=== PATIENT | female | born 1960 | race Caucasian/White ===

== ENCOUNTER 2017-02-12 07:53 | Emergency (ER) | payer BC ==
[2017-02-12 08:11] VITALS: BP 144/69
--- NOTE | 2017-02-12 09:15 | UC ---
Respiratory Complaint HPI - HPI Summary HPI Summary: 3 WEEKS OF COUGH, CONGESTION, VALIENTE, RHINITIS, SINUS PRESSURE, HOARSENESS AND INTERMITTENT, SUBJECTIVE FEVER. THOUGHT SHE WAS IMPROVING AFTER THE FIRST WEEK BUT THEN SX WORSENED AND HAVE NOT IMPROVED. - History of Current Complaint Chief Complaint: UCRespiratory Stated Complaint: RESP Time Seen by Provider: 02/12/17 09:01 Hx Obtained From: Patient Onset/Duration: Gradual Onset, Lasting Weeks, Still Present Timing: Constant Severity Initially: Moderate Severity Currently: Moderate Pain Intensity: 0 Pain Scale Used: 0-10 Numeric Character: Cough: Nonproductive Aggravating Factors: Nothing Alleviating Factors: Nothing Associated Signs And Symptoms: Positive: Fever, Wheezing, URI, Nasal Congestion , Hoarseness, Sinus Discomfort - Allergies/Home Medications Allergies/Adverse Reactions: Allergies Allergy/AdvReac Type Severity Reaction Status Date / Time Sertraline [From Zoloft] Allergy Severe Swelling Verified 02/12/17 08:11 Of Face,Lips,& Throat Eggs or Egg-derived Products Allergy Mild Rash Verified 02/12/17 08:11 Home Medications: Home Medications Citalopram TAB* [Celexa TAB*] 1 tab PO DAILY 02/12/17 [History Confirmed ] Ibuprofen [Childrens Advil] 20 ml PO Q6HR PRN 02/12/17 [History Confirmed ] PMH/Surg Hx/FS Hx/Imm Hx Cancer History: Breast Cancer - Surgical History Surgical History: Yes Surgery Procedure, Year, and Place: left mastectomy 2010 - Family History Known Family History: Negative: Hypertension - Social History Alcohol Use: None Substance Use Type: None Smoking Status (MU): Light Every Day Tobacco Smoker Type: Cigarettes Amount Used/How Often: 8-10 cig/day Length of Time of Smoking/Using Tobacco: 30+ years Have You Smoked in the Last Year: Yes - Immunization History Most Recent Influenza Vaccination: NOT UTD Review of Systems Constitutional: Fever, Fatigue ENT: Nasal Discharge Respiratory: Cough Cardiovascular: Negative Gastrointestinal: Negative Neurological: Headache All Other Systems Reviewed And Are Negative: Yes Physical Exam Triage Information Reviewed: Yes Appearance: Well-Appearing, No Pain Distress, Well-Nourished Vital Signs: Initial Vital Signs Temp 99.0 F 02/12/17 08:06 Pulse 82 02/12/17 08:06 Resp 20 02/12/17 08:06 BP 144/69 02/12/17 08:06 Pulse Ox 100 02/12/17 08:06 Vital Signs Reviewed: Yes Eyes: Positive: Conjunctiva Clear ENT: Positive: Hearing grossly normal, Pharynx normal, TMs normal Neck: Positive: Supple, Nontender, No Lymphadenopathy Respiratory: Positive: No respiratory distress, No accessory muscle use, Crackles - RIGHT LOWER LOBE COARSE RALES - CLEARED AFTER COUGHING Cardiovascular Exam: Normal Abdomen Description: Positive: Soft Musculoskeletal: Positive: No Edema Neurological: Positive: Alert Psychological: Positive: Age Appropriate Behavior Skin: Negative: rashes UC Diagnostic Evaluation - Laboratory O2 Sat by Pulse Oximetry: 100 Respiratory Course/Dx - Differential Dx/Diagnosis Provider Diagnoses: ACUTE SINUSITIS/BRONCHITIS Discharge - Discharge Plan Condition: Stable Disposition: HOME Prescriptions: Amoxicillin PO (*) [Amoxicillin 500 MG CAP*] 1,000 mg PO Q12H #40 cap predniSONE TAB* [Deltasone TAB*] 40 mg PO DAILY #10 tab Patient Education Materials: Sinusitis (ED), Acute Bronchitis (ED) Forms: *Work Release Referrals: Gerald Barber MD [Primary Care Provider] - If Needed Additional Instructions: YOUR SYMPTOMS MAY BE VIRALLY MEDIATED BUT GIVEN THE LENGTH OF TIME YOU HAVE BEEN ILL WE WILL COVER YOU WITH ANTIBIOTICS. IF YOU START THE MEDICINE BE SURE TO TAKE IT FOR THE FULL COURSE. REST, HYDRATE, OTC MEDS NEEDED. WILL ALSO TREAT WITH PREDNISONE TO HELP WITH AIRWAY INFLAMMATION. SEEK FOLLOW-UP WITH YOUR PCP IF YOU ARE NOT IMPROVING OVER THE NEXT 1-2 WEEKS.
== END 2017-02-12 09:25 | disposition home or self-care (01) ==
LOC: UCEAST 07:53
DX: J01.90 Acute sinusitis, unspecified (principal); J20.9 Acute bronchitis, unspecified; Z85.3 Personal history of malignant neoplasm of breast; F17.210 Nicotine dependence, cigarettes, uncomplicated; Z88.8 Allergy status to other drugs, medicaments and biological substances
CPT/HCPCS: 99212; G0463

== ENCOUNTER 2017-10-31 15:43 | Inpatient (IN) | payer BC ==
[2017-10-31] MEDS ORDERED: Ondansetron INJ* 2 MG/ML VIAL IV PRN (16:14)
[2017-10-31] MEDS: KCL 20 MEQ/100 ML IVPREMIX* 20 MEQ/100 ML BAG IV SCH ×2 (18:06→20:53)
[2017-10-31] MEDS: NS 0.9% 1000 ML* 1,000 ML IV SCH (18:06)
[2017-10-31] MEDS: Morphine INJ* 2 MG/ML 1 ML SYRINGE (TWO MG - NEW SYRINGE VERSION) IV PRN ×2 (18:07→23:26)
[2017-10-31] MEDS: Nystatin SUSPENSION* 100000 UNITS/ML 5 ML UDC PO SCH ×2 (18:09→20:52)
[2017-10-31] MEDS: Nicotine PATCH 21 MG/24 HR* PATCH TRANSDERM SCH (18:09)
[2017-10-31] MEDS: Nicotine Patch Removal NOTE FOLLOW UP SCH (20:56)
[2017-10-31] MEDS: Fluconazole 100 MG IVPREMIX(*) 100 MG/50 ML BAG IVPB SCH (23:27)
[2017-11-01] MEDS: NS 0.9% 1000 ML* 1,000 ML IV SCH (05:02)
[2017-11-01] MEDS: Nicotine PATCH 21 MG/24 HR* PATCH TRANSDERM SCH (09:02)
[2017-11-01] MEDS: Nystatin SUSPENSION* 100000 UNITS/ML 5 ML UDC PO SCH ×4 (09:02→20:49)
[2017-11-01] MEDS: Morphine INJ* 2 MG/ML 1 ML SYRINGE (TWO MG - NEW SYRINGE VERSION) IV PRN ×4 (10:13→21:58)
--- NOTE | 2017-11-01 10:22 | PN ---
Progress Note - Progress Note Date of Service: 11/01/17 SOAP: Subjective: [Reports that she is hungry and has intermittent upper abdominal pain. No n/v. No recent BM. Pending feeding tube for this am.] Objective: [ Enoxaparin Sodium (Lovenox(*)) 40 mg SUBCUT Q24H [facility] Sodium Chloride (Ns 0.9% 1000 Ml*) 1,000 mls @ 100 mls/hr IV PER RATE [facility] Last Admin: 11/01/17 05:02 Dose: 100 mls/hr Fluconazole/Sodium Chloride (Diflucan 100 Mg Ivpremix(*)) 100 mg in 50 mls @ 100 mls/hr IVPB Q24H [facility] Last Admin: 10/31/17 23:27 Dose: 100 mls/hr Morphine Sulfate (Morphine Inj ((Syringe))*) 2 mg IV Q2H PRN PRN Reason: PAIN - MILD Last Admin: 10/31/17 23:26 Dose: 2 mg Nicotine (Nicotine Patch 21 Mg/24 Hr*) 1 patch TRANSDERM DAILY [facility] Last Admin: 11/01/17 09:02 Dose: 1 patch Nystatin (Nystatin Suspension*) 500,000 units PO QID [facility] Stop: 11/07/17 16:19 Last Admin: 11/01/17 09:02 Dose: 500,000 units Ondansetron HCl (Zofran Inj*) 4 mg IV Q4H PRN PRN Reason: NAUSEA/VOMITING Pharmacy Profile Note (Nicotine Patch Removal Note*) 1 note FOLLOW UP 2100 [facility] Last Admin: 10/31/17 20:56 Dose: 1 note Vital Signs: Temp Pulse Resp BP Pulse Ox 98.7 F 79 16 118/65 93 11/01/17 03:06 11/01/17 03:06 11/01/17 03:06 11/01/17 03:06 11/01/17 03:06 Exam: Gen: Thin, pleasant 56 yo female in NAD HEENT: thrush CV: RRR, 3/6 murmur Resp: lungs CTA, no w/c/r Abd: soft, nonTTP, hypoactive BS Ext: no edema Skin: no rash] Assessment: [56 yo female with remote h/o BCA now with new diagnosis of esophageal CA, unable to tolerate anything by mouth due to esophageal obstruction. Plans for surgical G tube placement for nutrition. Plan: [1. Esophageal CA - pending surgical feeding tube placement for nutrition - no treatment started as of yet - pending second pathology opinion 2. Severe protein calorie malnutrition - prealbumin 5 - 20% body weight loss 3. h/o BCA Dispo: inpatient for hydration and feeding tube placement]
[2017-11-01 12:09] LABS: ABS Basophils 0.2 10^3/ul (0-0.2); ABS Eosinophils 0.6 10^3/ul (0-0.6); ABS Lymphocytes 1.4 10^3/ul (1.0-4.8); ABS Monocytes 0.8 10^3/ul (0-0.8); ABS Neutrophils 12.5 10^3/ul (1.5-7.7); ABS Nucleated RBC 0 10^3/ul; Eosinophil % 4.2 % (0-6); Hematocrit 29 % (35-47); Hemoglobin 9.4 g/dl (12.0-16.0); Lymphocyte % 9.1 % (25-47); Mean Corpuscular HGB Conc 33 g/dl (31-36); Mean Corpuscular Hemoglobin 27 pg (27-31); Mean Corpuscular Volume 82 fL (80-97); Mean Platelet Volume 6.7 um3 (7.4-10.4); Nucleated Red Blood Cells % 0; Platelet Count 463 10^3/ul (150-450); Red Blood Count 3.51 10^6/ul (4.00-5.40); Red Cell Distribution Width 14 % (10.5-15); White Blood Count 15.5 10^3/ul (3.5-10.8)
[2017-11-01] MEDS ORDERED: ceFAZolin 2 GM PREMIX (*) 2 GM/50 ML BAG IVPB ONE (12:26)
[2017-11-01 12:31] LABS: EGFR Non-African American 97.1 (>60)
[2017-11-01] MEDS ORDERED: Magnesium Sulfate 1 GM IV* 1 GM/100 ML BAG IV ONE (13:11)
[2017-11-01] MEDS ORDERED: Dextrose 50% Syringe 50 ML* 25 GM/50 ML SYRINGE ONE (13:18)
[2017-11-01] MEDS ORDERED: Thiamine IV* 100 MG/ML 2 ML VIAL IV ONE (13:26)
[2017-11-01] MEDS ORDERED: DiMENhydriNATE IV* 50 MG/ML VIAL IV PUSH PRN (13:28)
[2017-11-01] MEDS ORDERED: HYDROmorphone INJ* 0.5 MG/0.5 ML SYRINGE IV PRN (13:28)
[2017-11-01] MEDS ORDERED: Naloxone* 0.4 MG/ML 1 ML VIAL IV PRN (13:28)
[2017-11-01] MEDS ORDERED: Midazolam* 1 MG/ML 2 ML VIAL (2 MG) ONE (14:01)
[2017-11-01] MEDS ORDERED: fentaNYL* 50 MCG/ML 2 ML VIAL (100 MCG VIAL) ONE ×2 (14:16→14:51)
[2017-11-01] MEDS ORDERED: Propofol* 10 MG/ML 20 ML BTL IV PUSH ONE (14:51)
[2017-11-01] MEDS ORDERED: Lidocaine 2% PF * 5 ML VIAL ONE (14:51)
[2017-11-01] MEDS ORDERED: Ondansetron INJ* 2 MG/ML VIAL ONE (14:51)
[2017-11-01] MEDS ORDERED: Dexamethasone IV* 4 MG/ML 1 ML (4 MG) ONE (14:51)
[2017-11-01] MEDS ORDERED: Levalbuterol 0.63MG/3ML NEB* UNIT OF USE INH ONE ×2 (15:32→15:38)
[2017-11-01] MEDS ORDERED: Dextrose 50% Syringe 50 ML* 25 GM/50 ML SYRINGE IV PUSH PRN (15:33)
--- NOTE | 2017-11-01 16:03 | RAD ---
Indication: Gastric tube study. Dehydration. Comparison: October 30, 2017 CT. Technique: Supine view of the abdomen obtained following injection of Gastrografin through the percutaneous gastric tube. REPORT AND IMPRESSION: #. Tip of the percutaneous gastric tube is at the level of the gastric antrum. #. Contrast flows retrograde to the fundus of the stomach and distal to the proximal third segment of the duodenum. #. No enteric leak or gross mucosal irregularity evident. #. Negative for dilatation of the duodenum to suggest distal obstruction.
[2017-11-01] MEDS: KCL 10 MEQ/50 ML IVPREMIX* 10 MEQ/50 ML BAG IV SCH (17:00)
[2017-11-01] MEDS: Fluconazole 100 MG IVPREMIX(*) 100 MG/50 ML BAG IVPB SCH (18:48)
[2017-11-01] MEDS: Nicotine Patch Removal NOTE FOLLOW UP SCH (20:49)
--- NOTE | 2017-11-01 21:11 | CONS ---
SURGICAL CONSULTATION: DATE OF CONSULT: 11/01/17 REQUESTING PHYSICIAN: Ema Monroy MD REASON FOR CONSULT: Esophageal obstruction and need for enteral access. HISTORY OF PRESENT ILLNESS: Soco Mascorro is a 57-year-old female with a history of breast cancer and recently diagnosed malignant esophageal tumor. She had progressive dysphagia, which lead to an endoscopy revealing an obstructing mass in the esophagus. The patient has been unable to tolerate even liquids or her own secretions and presented to the Oncology Office with severe dehydration. She was admitted to [facility] and noted to have some electrolyte derangement. Due to inability to perform PEG tube, the patient has been scheduled for surgical gastrostomy. PAST MEDICAL HISTORY: Breast cancer and esophageal cancer, anxiety, tobacco use. PAST SURGICAL HISTORY: Left mastectomy. MEDICATIONS: 1. Buspirone. 2. Cymbalta. ALLERGIES: SERTRALINE, EGGS, and SANDWICH. FAMILY HISTORY: Notable for breast cancer in her sister. SOCIAL HISTORY: She is single, mother of 2 adopted children, age of 9 and 12. She smokes half a pack a day. Denies alcohol use or drug use. REVIEW OF SYSTEMS: Constitutional: No fever, chills, but 20-pound weight loss over several months, 6-pound weight loss over the past week. GI: As above. Endocrine: As above. No diabetes or thyroid disease. : No symptoms. Respiratory: No chest pain or shortness of breath. Cardiac: No history of angina or palpitations. PHYSICAL EXAM: She is cachetic-appearing 56-year-old female who is lying in the hospital bed, in no acute distress. She has a height of 5 feet 1 inch, weight of 85 pounds. Head is normocephalic and atraumatic. Sclerae are anicteric. Her abdomen is without scars, nondistended, soft, and nontender. No palpable masses or hernias. Extremities are warm and well perfused. IMPRESSION: A 56-year-old female with obstructing esophageal cancer, in need of enteric access for feeding. PLAN/RECOMMENDATIONS: We will place surgical gastrostomy tube as she is not a candidate for endoscopic approach. The nature of the procedure, indications, risks, benefits, and alternatives were discussed with the patient and 2 of her sisters who accompanied her. The risks, benefits, and alternatives were explained. The risks were explained including, not limiting to, bleeding, infection, pain, scarring, blood clot, pneumonia, tube complications including dislodgement and the risk of the anesthesia. The patient had an opportunity to ask questions and she stated her understanding and she agrees to proceed. [id number]/[facility] #: [id number] MTDD
[2017-11-02] MEDS: Morphine INJ* 2 MG/ML 1 ML SYRINGE (TWO MG - NEW SYRINGE VERSION) IV PRN ×5 (03:06→21:55)
[2017-11-02] MEDS: NS 0.9% 1000 ML* 1,000 ML IV SCH (05:54)
[2017-11-02 07:11] LABS: EGFR Non-African American 113.5 (>60)
[2017-11-02] MEDS: Nicotine PATCH 21 MG/24 HR* PATCH TRANSDERM SCH (07:46)
[2017-11-02] MEDS: Nystatin SUSPENSION* 100000 UNITS/ML 5 ML UDC PO SCH ×4 (07:46→21:55)
--- NOTE | 2017-11-02 07:49 | PN ---
Progress Note - Progress Note Date of Service: 11/02/17 Note: POD#1 s/p G-tube Afeb Flores TF, No nausea Has loose stools Mild pain Abd benign--site clean, non-distended, min tender Impr: Appropriate recovery s/p G-tube Advance feeds slowly as tolerated Disch per medicine
[2017-11-02] MEDS ORDERED: NS 0.9% w/ 40 Meq KCL 1000 ML* 1,000 ML IV SCH (11:00)
[2017-11-02] MEDS: Enoxaparin(*) 40 MG/0.4 ML SYR SUBCUT SCH (17:20)
[2017-11-02] MEDS: Fluconazole 100 MG IVPREMIX(*) 100 MG/50 ML BAG IVPB SCH (18:22)
[2017-11-02] MEDS: Nicotine Patch Removal NOTE FOLLOW UP SCH (21:55)
[2017-11-03 06:39] LABS: EGFR Non-African American 102.7 (>60)
[2017-11-03] MEDS: Nystatin SUSPENSION* 100000 UNITS/ML 5 ML UDC PO SCH ×4 (08:10→20:10)
[2017-11-03] MEDS: Nicotine PATCH 21 MG/24 HR* PATCH TRANSDERM SCH (08:10)
[2017-11-03] MEDS: Morphine INJ* 2 MG/ML 1 ML SYRINGE (TWO MG - NEW SYRINGE VERSION) IV PRN (09:01)
[2017-11-03] MEDS ORDERED: Morphine ORAL CONCENTRATE* 5 MG/0.25 ML ORAL.SYRIN SL PRN (10:53)
[2017-11-03] MEDS ORDERED: fentaNYL PATCH 12 MCG/HR TRANSDERM SCH (11:00)
[2017-11-03] MEDS: Enoxaparin(*) 40 MG/0.4 ML SYR SUBCUT SCH (17:20)
[2017-11-03] MEDS: Fluconazole 100 MG IVPREMIX(*) 100 MG/50 ML BAG IVPB SCH (18:25)
[2017-11-03] MEDS: fentaNYL Patch Check Q Shift 1 NOTE SCH (18:28)
[2017-11-03] MEDS: Nicotine Patch Removal NOTE FOLLOW UP SCH (20:12)
[2017-11-04] MEDS: fentaNYL Patch Check Q Shift 1 NOTE SCH (07:09)
[2017-11-04 07:48] VITALS: BP 122/74
[2017-11-04] MEDS: Nystatin SUSPENSION* 100000 UNITS/ML 5 ML UDC PO SCH (08:17)
[2017-11-04] MEDS: Nicotine PATCH 21 MG/24 HR* PATCH TRANSDERM SCH (08:18)
--- NOTE | 2017-11-05 04:07 | OP ---
CC: Ema Monroy MD; Shawn Frankel MD * DATE OF OPERATION: 11/01/17 - ROOM #411 DATE OF : 56 SURGEON: Marvin Yao MD PERSONNEL AND PAYROLL TECHNICIAN: Andreea Jacobson NP ANESTHESIOLOGIST: Dr. Butcher. ANESTHESIA: Local MAC. PRE-OP DIAGNOSIS: Destructing esophageal cancer. POST-OP DIAGNOSIS: Destructing esophageal cancer. OPERATIVE PROCEDURE: Open placement of gastrostomy tube. ESTIMATED BLOOD LOSS: Minimal. IV FLUIDS: Crystalloid. SPECIMENS: None. DRAINS: 20-Ukrainian gastrostomy tube. COMPLICATIONS: None. COUNTS: The instrument, needle, and sponge counts were correct. DESCRIPTION OF PROCEDURE: The patient was brought to the operating room and placed on the table supine. Sequential compression devices were placed on both lower extremities. Intravenous sedation was administered as were intravenous antibiotics. She was prepped and draped in the usual sterile fashion. Time- out was performed. Local anesthetic was infiltrated into the upper midline of the abdomen. Incision was created through subcutaneous tissues with cautery and fascia was divided, elevated and peritoneum was entered with Metzenbaum scissors. The peritoneum and fascia was then extended to the length of the incision which was about 7 cm. The gastric body was identified, grasped along the greater curvature with Alejandra clamps and elevated into the wound. A 3-0 silk purse string was placed in the anterior stomach near the greater curvature. A 20- Ukrainian gastrostomy tube was placed through a separate stab wound incision in the left upper quadrant of the abdomen. Gastrotomy is created with cautery and mucosa was elevated and entered. The tube was inserted into the gastric lumen and then the purse string was secured. The stomach was then sutured to the anterior abdominal wall at 3 positions with 3-0 silk. The balloon of the gastric tube was inflated and drawn up towards the abdominal wall as the sutures were tied down. The gastric tube was aspirated and there was some scant bile noted. The midline wound was closed with 0 Vicryl in running fashion. Midline skin was closed with 4-0 Monocryl. The gastric tube was secured with 3-0 Prolene to the skin and then 0-silk placed around the flange in order to further secure the tube. The patient tolerated the procedure well. She was awakened and transferred to recovery in stable condition. [id number]/[facility] #: [id number] [facility]ITAL[facility]
== END 2017-11-04 09:30 | disposition home or self-care (01) | DRG 222 ==
LOC: MED 17:11
PROVIDERS: ADMIT Internal Medicine Hematology & Oncology; ATTEND Internal Medicine Hematology & Oncology
PROC: 0DH60UZ Insertion of Feeding Device into Stomach, Open Approach (ICD-10-PCS; principal; 2017-11-01 13:30)
DX: K22.2 Esophageal obstruction (principal); E43 Unspecified severe protein-calorie malnutrition; C15.9 Malignant neoplasm of esophagus, unspecified; Z68.1 Body mass index [BMI] 19.9 or less, adult; R13.10 Dysphagia, unspecified; F41.9 Anxiety disorder, unspecified; E78.5 Hyperlipidemia, unspecified; F17.210 Nicotine dependence, cigarettes, uncomplicated; E86.0 Dehydration; E87.6 Hypokalemia; Z91.012 Allergy to eggs; Z88.8 Allergy status to other drugs, medicaments and biological substances; Z91.048 Other nonmedicinal substance allergy status; Z79.899 Other long term (current) drug therapy; Z80.3 Family history of malignant neoplasm of breast; Z85.3 Personal history of malignant neoplasm of breast
CPT/HCPCS: 36415; 71260; 74018; 74160; 80048; 80053; 83735; 84134; 85025; 85060; 96360; 99211; 99223; 99232; A9270-GY; G0463; J0690; J1100; J1450; J1650; J2250; J2270; J2405; J2704; J3010; J3411; J3475; J3480; Q9967

== ENCOUNTER 2018-01-05 21:51 | Inpatient (IN) | payer BC ==
[2018-01-05] MEDS ORDERED: NS 0.9% 1000 ML* 1,000 ML IV ONE (22:10)
[2018-01-05] MEDS ORDERED: Pantoprazole IV* 40 MG IV ONE (22:10)
--- NOTE | 2018-01-05 22:35 | ED ---
Complex/Multi-Sys Presentation - HPI Summary HPI Summary: The pt is a 57 y.o female [facility] with chief complaints of AMS and black tarry stool. The pt's history is dictated by the pt's family member ( sister) as well as the pt herself. The pt's family member states that the pt has cancer in areas ranging from the esophagus to the stomach which later traveled to parts of the liver and bone as well (metastasis). She was diagnosed in November. Other PSHx includes Mastectomy, and PICC line placement. The pt has also reportedly received stents in the esophagus. No cardiac issues are reported. Pt reports pale figure, weakness and fatigue. She has been receiving antibiotics with the assistance of her sisters. PT has had issues producing a bowel movement in 3 to 4 days and later received Magnesium citrate (2.5 ounces) earlier today with water to facilitate bowel movement. As per pt report and her sister's report, the pt's stool is described as black and tarry. No iron was taken. The pt has been seen in [facility] [place], [place] (where she received the PICC line placement). - History Of Current Complaint Chief Complaint: EDAltMentalStatus Time Seen by Provider: 01/05/18 22:05 Hx Obtained From: Patient, Family/Pharmacovigilance Scientist - Sister Onset/Duration: Gradual Onset Timing: Constant Aggravating Factor(s): Nothing Alleviating Factor(s): Magnesium Citrate Associated Signs And Symptoms: Positive: Other - Black Tarry Stool, and AMS - Allergies/Home Medications Allergies/Adverse Reactions: Allergies Allergy/AdvReac Type Severity Reaction Status Date / Time egg Allergy Hives Verified 12/25/17 15:17 Egg Derived Allergy Hives Verified 12/25/17 15:17 egg yolk Allergy Hives Verified 12/25/17 15:17 sertraline [From Zoloft] Allergy Swelling Verified 12/25/17 15:17 Of Face,Lips,& Throat PMH/Surg Hx/FS Hx/Imm Hx Endocrine/Hematology History: Reports: Hx Anemia Denies: Hx Diabetes Cardiovascular History: Denies: Hx Hypertension GI History: Reports: Hx Gastrointestinal Bleed, Other GI Disorders - Stage 4 esophageal CA, PEG in place History: Denies: Hx Dialysis, Hx Renal Disease Musculoskeletal History: Reports: Hx Back Problems Denies: Hx Osteoporosis Sensory History: Reports: Hx Contacts or Glasses Denies: Hx Hearing Aid Opthamlomology History: Reports: Hx Contacts or Glasses Psychiatric History: Reports: Hx Anxiety - Cancer History Cancer Type, Location and Year: left breast CA 2010 Esophogeal Hx Chemotherapy: Yes Hx Radiation Therapy: No - Surgical History Surgery Procedure, Year, and Place: left mastectomy 2010 Hx Anesthesia Reactions: No Infectious Disease History: No Infectious Disease History: Denies: Hx Clostridium Difficile, Hx Hepatitis, Hx Human Immunodeficiency Virus (HIV), Hx of Known/Suspected MRSA, Hx Shingles, Hx Tuberculosis, Hx Known/ Suspected VRE, Hx Known/Suspected VRSA, History Other Infectious Disease, Traveled Outside the [place] in Last 30 Days - Family History Known Family History: Negative: Hypertension Family History: Reviewed and Noncontributory - Social History Alcohol Use: None Substance Use Type: Reports: None Smoking Status (MU): Heavy Every Day Tobacco Smoker Type: Cigarettes Amount Used/How Often: pack per day Length of Time of Smoking/Using Tobacco: 40 years Have You Smoked in the Last Year: Yes Review of Systems Positive: Fatigue, Other - Pale Eyes: Negative ENT: Negative Cardiovascular: Negative Respiratory: Negative Gastrointestinal: Other - Black Tarry Stool Genitourinary: Negative Musculoskeletal: Negative Skin: Negative Positive: Weakness Psychological: Other - Altered Mental State All Other Systems Reviewed And Are Negative: Yes Physical Exam - Summary Physical Exam Summary: VITAL SIGNS: Reviewed. GENERAL: Patient is pale (FEMALE) who is lying comfortable in the stretcher. Patient is not in any acute respiratory distress. HEAD AND FACE: No signs of trauma. No ecchymosis, hematomas or skull depressions. No sinus tenderness. EYES: PERRLA, EOMI x 2, No injected conjunctiva, no nystagmus. EARS: Hearing grossly intact. Ear canals and tympanic membranes are within normal limits. MOUTH: Oropharynx within normal limits. NECK: Supple, trachea is midline, no adenopathy, no JVD, no carotid bruit, no c- spine tenderness, neck with full ROM. CHEST: Symmetric, no tenderness at palpation LUNGS: Clear to auscultation bilaterally. No wheezing or crackles. CVS: Tachycardic ABDOMEN: Soft, non-tender. No signs of distention. No rebound no guarding, and no masses palpated. G Tube with black liquid in her tube. EXTREMITIES: Bilateral lower Extremity edema, Two port PICC line in right upper extremity NEURO: Alert and oriented x 3. No acute neurological deficits. Speech is normal and follows commands. SKIN: Dry and warm Rectal exam:Showed black stool; sent for occult blood Triage Information Reviewed: Yes Vital Signs On Initial Exam: Initial Vitals Temp Pulse Resp BP Pulse Ox 97.5 F 120 28 75/56 0 01/05/18 22:08 01/05/18 22:08 01/05/18 22:08 01/05/18 22:08 01/05/18 22:08 Vital Signs Reviewed: Yes Diagnostics - Vital Signs Vital Signs Temp Pulse Resp BP Pulse Ox 01/05/18 22:08 97.5 F 120 28 75/56 0 - Laboratory Result Diagrams: 01/05/18 22:25 01/05/18 22:25 Lab Statement: Any lab studies that have been ordered have been reviewed, and results considered in the medical decision making process. - Radiology Chest X-ray Radiology Interpretation Completed By: ED Physician - The Chest X-ray revealed right plural effusion, which improved from previous chest x-ray from 12/22/17. - EKG 2306 Cardiac Rate: Tachycardia - 114 bpm Summary of EKG Findings: The EKG reveals Q waves in the septal leads at 2306 Complex Multi-Symp Course/Dx Course Of Treatment: The pt is a 57 y.o female with a chief complaint of black tarry stool. The pt is a cancer pt who is currently in a AMS. The pt is in comfort care and is currently on morphine, We discussed with patient and patient 's family if the pt would want to be transferred to another Facility ([place]) and the pt wishes to stay. The Rectal exam did show black stool and sent for occult blood. The hospitalist was paged at [phone]. Dr. Knapp is the hospitalist. The pt dx will be upper GI bleed and Esophageal cancer. Critical Care Time: 50 minutes. Pt was admitted at 0004. - Diagnoses Provider Diagnoses: Upper GI bleed, Esophageal cancer - Physician Notifications Discussed Care Of Patient With: Michelle Knapp - Discussed pt care Time Discussed With Above Provider: 00:00 Instructed by Provider To: Admit As Observation - Critical Care Time Critical Care Time: 30-74 min - 50 minutes Discharge - Sign-Out/Discharge Documenting (check all that apply): Patient Departure - Admitted to the [facility] - Discharge Plan Condition: Stable Disposition: ADMITTED TO [facility] Referrals: Gerald Barber MD [Primary Care Provider] - - Attestation Statements Document Initiated by Scribe: Yes Documenting Scribe: Chris Carpenter Provider For Whom Scribe is Documenting (Include Credential): Dr. Main Mack Scribe Attestation: Chris Osuna, scribed for Dr. Main Mack on 01/06/18 at 0024.
[2018-01-05 22:42] LABS: Hematocrit 9 % (35-47); Hemoglobin 2.7 g/dl (12.0-16.0); Mean Corpuscular HGB Conc 30 g/dl (31-36); Mean Corpuscular Hemoglobin 27 pg (27-31); Mean Corpuscular Volume 92 fL (80-97); Mean Platelet Volume 7.5 fL (7.4-10.4); Platelet Count 164 10^3/ul (150-450); Red Blood Count 0.97 10^6/ul (4.00-5.40); Red Cell Distribution Width 19 % (10.5-15); White Blood Count 30.1 10^3/ul (3.5-10.8)
[2018-01-05 22:48] LABS: INR 2.49 (0.77-1.02)
[2018-01-05] MEDS ORDERED: Pantoprazole* 80 mg IN NS 80 MG/250 ML BAG IVPB SCH (23:00)
[2018-01-05 23:04] LABS: ABS Basophils 0.2 10^3/ul (0-0.2); ABS Eosinophils 0.2 10^3/ul (0-0.6); ABS Lymphocytes 2.3 10^3/ul (1.0-4.8); ABS Monocytes 0.9 10^3/ul (0-0.8); ABS Neutrophils 26.6 10^3/ul (1.5-7.7); ABS Nucleated RBC 1.3 10^3/ul; Eosinophil % 0.6 % (0-6); Lymphocyte % 7.6 % (25-47); Nucleated Red Blood Cells % 4.3
[2018-01-06] MEDS ORDERED: Ondansetron INJ* 2 MG/ML VIAL IV PRN (00:42)
--- NOTE | 2018-01-06 00:51 | ADMNOTE ---
Subjective Date of Service: 01/06/18 Interval History: code status dni/dnr this is an admission h/p hpi this is a 57 yr old female was brought in because black stool and sig fatigue for one day prior to admission. pt has hx of esphageal cancer at ge junction/ mets to liver and bone, hx of upper gib s/p recurrent egd times four---> most recent egd was done two weeks ago at [facility] with one esophageal stent placed was brought in due to black stool for one day. pt's intial hg was 2.7--- > her sbp in the er initially was 70 and hr 120---> pt was written up for four units prbc ( from er to icu ) and total of 4 unit of prbc. she was started with protonix drip as well. spoke with family after they d/w pt when she is aao times three reg her care---> THEIR GOAL IS TO LET HER STABLIZE TO GO HOME WITH HER KIDS UNTIL SHE DIES INSTEAD OF procedures family signed dnr/dni and was filed in chart phx stage 4 esophageal cancer at [facility] with liver/bone mets breast ca s/p r mastectomy + chemo s/p picc line placed cig 6 cig daily persistant r pleural effusion now has a chest tube bed bound pshx s/p total 4 egd including one stent placed two weeks ago s/p r chest tube placement s/p esophageal stent placement due to tumor expansion upwards on esophagus and downwards from the stomach social hx 6 cig daily no etoh no ivda but bed bounds fhx breast ca from sister Review of Systems - Measurements Intake and Output: Intake and Output Last 24 Hours 01/03/18 01/04/18 01/05/18 01/06/18 07:59 07:59 06:59 06:59 Weight 100 lb - Review of Systems General Comments: pertinent as per hpi Objective Active Medications: Pantoprazole Sodium (Protonix Iv Bag*) 80 mg in 250 mls @ 25 mls/hr IVPB Q10H JASMIN Last Admin: 01/05/18 22:52 Dose: 25 mls/hr Vital Signs - 8 hr 01/05/18 01/05/18 01/05/18 21:54 22:00 22:02 Temperature Pulse Rate Respiratory 25 27 24 Rate Blood Pressure 75/56 (mmHg) O2 Sat by Pulse Oximetry 01/05/18 01/05/18 01/05/18 22:07 22:08 22:16 Temperature 97.5 F Pulse Rate 120 Respiratory 31 28 24 Rate Blood Pressure 98/55 75/56 98/38 (mmHg) O2 Sat by Pulse 0 Oximetry 01/05/18 01/05/18 01/05/18 22:26 22:36 22:46 Temperature Pulse Rate 127 123 Respiratory 27 18 24 Rate Blood Pressure 99/55 100/46 80/39 (mmHg) O2 Sat by Pulse 100 Oximetry 01/05/18 01/05/18 01/05/18 22:56 22:59 23:00 Temperature Pulse Rate 132 87 Respiratory 23 25 24 Rate Blood Pressure 96/29 (mmHg) O2 Sat by Pulse 100 Oximetry 01/05/18 01/05/18 01/05/18 23:07 23:19 23:21 Temperature Pulse Rate 115 103 Respiratory 18 17 11 Rate Blood Pressure 79/48 73/50 (mmHg) O2 Sat by Pulse 83 Oximetry 01/05/18 01/05/18 01/05/18 23:24 23:29 23:30 Temperature Pulse Rate 122 102 Respiratory 20 19 17 Rate Blood Pressure 83/46 87/43 98/47 (mmHg) O2 Sat by Pulse 89 88 Oximetry 01/05/18 01/05/18 01/05/18 23:34 23:39 23:43 Temperature Pulse Rate Respiratory 19 17 17 Rate Blood Pressure 83/44 77/48 (mmHg) O2 Sat by Pulse Oximetry 01/05/18 01/06/18 01/06/18 23:59 00:00 00:01 Temperature Pulse Rate 137 137 135 Respiratory 22 17 14 Rate Blood Pressure 73/50 (mmHg) O2 Sat by Pulse 91 83 92 Oximetry Oxygen Devices in Use Now: Nasal Cannula Appearance: in mild distress cachexia pale looking Eyes: PERRLA Ears/Nose/Mouth/Throat: NL Teeth, Lips, Gums, - Neck: NL Appearance and Movements; NL JVP, Trachea Midline, No Thyroid Enlargement, Masses Respiratory: Symmetrical Chest Expansion and Respiratory Effort, - - decreased b /s at base lung Cardiovascular: NL Sounds; No Murmurs; No JVD, RRR Abdominal: NL Sounds; No Tenderness; No Distention Extremities: No Edema, - - + 3-4 pedal edema able to raise min on the le about 10 degree against gravity Skin: No Rash or Ulcers Neurological: Alert and Oriented x 3, - - cranial n 2-12 grossly intact motor upper 5/5 le 4/5 sensory ue 2/2 le 1/2 plantar reflex downwards Result Diagrams: 01/06/18 09:10 01/06/18 09:10 Microbiology and Other Data: Microbiology 01/05/18 23:12 Stool Occult Blood (LORELEI) - Final Stool Assess/Plan/Problems-Billing Assessment: this is a 57 yr old with stage 4 esophageal cancer with liver/bone mets sent from home to er due to one day hx of black stool ---> hg on admission was 2.7--- > she was written for four units of prbc and four units of ffp ( from er to floor ) ---> pt does not want procedure and wants to go home as soon as medically able to. will not call gi because of her request - Patient Problems (1) Acute blood loss anemia Status: Acute Code(s): D62 - ACUTE POSTHEMORRHAGIC ANEMIA SNOMED Code(s): 152961568 Comment: transfuse with prbc will also correct her inr by vit k and ffp (2) Esophageal cancer, stage IV Status: Acute Code(s): C15.9 - MALIGNANT NEOPLASM OF ESOPHAGUS, UNSPECIFIED SNOMED Code(s): 420105217 Comment: poor prognosis pt is dni/dnr ---> only palliative care approach for now (3) Hypotension Status: Acute Comment: due to her extreme low hg seems to respond to prbc her tachytardia also responds to prbc (4) Recurrent pleural effusion on right Status: Acute Code(s): J90 - PLEURAL EFFUSION, NOT ELSEWHERE CLASSIFIED SNOMED Code(s): 31565489 Comment: currently still has chest tube not hypoxia repeat chest x ray in am (5) Hypercoagulopathy Status: Acute Code(s): D68.59 - OTHER PRIMARY THROMBOPHILIA SNOMED Code(s): 37867739 Comment: due to her esophageal cancer mets to liver two units ffp written by er two more ffp added by this technical publications writer will give one dose of vit k iv despite it might not work at all due to her underlying hx
[2018-01-06] MEDS ORDERED: Phytonadione IV (Adult)* 10 MG/ML 1 ML AMP IV ONE (01:51)
[2018-01-06] MEDS: Ciprofloxacin 400MG IVPREMIX(* 400 MG/200 ML BAG IVPB SCH ×3 (03:13→23:44)
[2018-01-06] MEDS: Morphine VIAL* 4 MG/ML VIAL (1 ml vial) IV PRN ×6 (03:58→17:59)
[2018-01-06] MEDS: Pantoprazole* 80 mg IN NS 80 MG/250 ML BAG IVPB SCH ×4 (07:11→20:44)
[2018-01-06 09:38] LABS: Hematocrit 27 % (35-47); Hemoglobin 9.3 g/dl (12.0-16.0); Mean Corpuscular HGB Conc 34 g/dl (31-36); Mean Corpuscular Hemoglobin 29 pg (27-31); Mean Corpuscular Volume 84 fL (80-97); Mean Platelet Volume 7.3 fL (7.4-10.4); Platelet Count 107 10^3/ul (150-450); Red Blood Count 3.25 10^6/ul (4.00-5.40); Red Cell Distribution Width 15 % (10.5-15); White Blood Count 23.8 10^3/ul (3.5-10.8)
[2018-01-06 09:44] LABS: INR 1.35 (0.77-1.02)
[2018-01-06 09:50] LABS: EGFR Non-African American 87.1 (>60)
[2018-01-06] MEDS ORDERED: Morphine ORAL CONCENTRATE* 5 MG/0.25 ML ORAL.SYRIN SL PRN (10:14)
--- NOTE | 2018-01-06 10:35 | PN ---
Progress Note - Progress Note Date of Service: 01/06/18 SOAP: Subjective: [Soco was transferred to [facility] emergently 12/20 with an esophageal perforation. Esophagus was stented and chest tube placed in R pleural effusion as well as her PEG tube replaced. CT chest done at that time suggested metastatic disease with liver and bony mets. Per patient request she was discharged home and has been unwilling to follow up in the medical oncology office since returning. She reports she has been tolerating some po nutrition and has been using her PEG tube for tube feedings. Soco was admitted overnight with severe blood loss anemia. Patient is not clear on the circumstances of the admission but reports that she had been feeling constipated for several days and last night she had large volume diarrhea that was black and thick in consistency. She was transfused 4U PRBCs and 3U FFP since admission.] Objective: [ Laboratory Results - last 24 hr 01/05/18 01/05/18 01/05/18 22:25 22:25 22:25 WBC 30.1 H RBC 0.97 L Hgb 2.7 L* Hct 9 L MCV 92 MCH 27 MCHC 30 L RDW 19 H Plt Count 164 MPV 7.5 Neut % (Auto) 88.4 H Lymph % (Auto) 7.6 L Colbert % (Auto) 2.8 Eos % (Auto) 0.6 Baso % (Auto) 0.6 Absolute Neuts (auto) 26.6 H Absolute Lymphs (auto) 2.3 Absolute Monos (auto) 0.9 H Absolute Eos (auto) 0.2 Absolute Basos (auto) 0.2 Absolute Nucleated RBC 1.3 Nucleated RBC % 4.3 Polychromasia 1+ Hypochromasia 1+ Anisocytosis 3+ INR (Anticoag Therapy) 2.49 H APTT 42.1 H Sodium 136 Potassium 3.4 L Chloride 99 L Carbon Dioxide 15 L Anion Gap 22 H BUN 28 H Creatinine 0.64 Est GFR ( Amer) 114.9 Est GFR (Non-Af Amer) 95.0 BUN/Creatinine Ratio 43.8 H Glucose 89 POC Glucose (mg/dL) Calcium 6.8 L Total Bilirubin 0.20 AST 230 H ALT 63 H Alkaline Phosphatase 77 Total Protein < 3.0 L Albumin 1.0 L Globulin 2.0 Albumin/Globulin Ratio 0.5 L Blood Type Antibody Screen Crossmatch 01/05/18 01/05/18 01/06/18 22:26 23:00 09:10 WBC 23.8 H RBC 3.25 L Hgb 9.3 L Hct 27 L MCV 84 MCH 29 MCHC 34 RDW 15 Plt Count 107 L MPV 7.3 L Neut % (Auto) Not Reportable Lymph % (Auto) Not Reportable Colbert % (Auto) Not Reportable Eos % (Auto) Not Reportable Baso % (Auto) Not Reportable Absolute Neuts (auto) Not Reportable Absolute Lymphs (auto) Not Reportable Absolute Monos (auto) Not Reportable Absolute Eos (auto) Not Reportable Absolute Basos (auto) Not Reportable Absolute Nucleated RBC Not Reportable Nucleated RBC % Not Reportable Polychromasia Hypochromasia Anisocytosis INR (Anticoag Therapy) APTT Sodium Potassium Chloride Carbon Dioxide Anion Gap BUN Creatinine Est GFR ( Amer) Est GFR (Non-Af Amer) BUN/Creatinine Ratio Glucose POC Glucose (mg/dL) 90 Calcium Total Bilirubin AST ALT Alkaline Phosphatase Total Protein Albumin Globulin Albumin/Globulin Ratio Blood Type O Positive Antibody Screen Negative Crossmatch See Detail 01/06/18 01/06/18 09:10 09:10 WBC RBC Hgb Hct MCV MCH MCHC RDW Plt Count MPV Neut % (Auto) Lymph % (Auto) Colbert % (Auto) Eos % (Auto) Baso % (Auto) Absolute Neuts (auto) Absolute Lymphs (auto) Absolute Monos (auto) Absolute Eos (auto) Absolute Basos (auto) Absolute Nucleated RBC Nucleated RBC % Polychromasia Hypochromasia Anisocytosis INR (Anticoag Therapy) 1.35 H APTT Sodium 137 Potassium 3.4 L Chloride 95 L Carbon Dioxide 35 H Anion Gap 7 BUN 38 H Creatinine 0.69 Est GFR ( Amer) 105.4 Est GFR (Non-Af Amer) 87.1 BUN/Creatinine Ratio 55.1 H Glucose 85 POC Glucose (mg/dL) Calcium 8.2 L Total Bilirubin 0.90 AST ALT 382 H Alkaline Phosphatase 102 Total Protein 4.4 L Albumin 2.1 L Globulin 2.3 Albumin/Globulin Ratio 0.9 L Blood Type Antibody Screen Crossmatch Pantoprazole Sodium (Protonix Iv Bag*) 80 mg in 250 mls @ 25 mls/hr IVPB Q10H JASMIN Last Admin: 01/06/18 08:44 Dose: 25 mls/hr Ciprofloxacin/Dextrose (Cipro 400 Mg Ivpremix(*)) 400 mg in 200 mls @ 200 mls/ hr IVPB Q12H JASMIN Last Admin: 01/06/18 03:13 Dose: 200 mls/hr Morphine Sulfate (Morphine Vial*) 4 mg IV Q2H PRN PRN Reason: PAIN Morphine Sulfate (Morphine Oral Concentrate*) 10 mg SL Q2H PRN PRN Reason: PAIN Ondansetron HCl (Zofran Inj*) 4 mg IV Q6H PRN PRN Reason: NAUSEA Vital Signs: Temp Pulse Resp BP Pulse Ox 99.2 F 111 17 118/66 96 01/06/18 08:00 01/06/18 10:01 01/06/18 10:01 01/06/18 10:00 01/06/18 10:01 Exam: Gen: Ill appearing 57 yo female who is lethargic but easily aroused CV: RRR, no m/r/g Resp: limited exam, but no adventitous sounds Abd: distended, but soft and nonTTP with PEG tube in place Ext: diffuse pitting edema] Assessment: [57 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 Patient does not desire any significant interventions and would like to return home as soon as possible.] Plan: [1. Acute blood loss anemia - secondary to GI bleed, likely bleeding is from her esophageal tumor but may be bleeding from the stomach as well - transfused 4U PRBCs with increase in Hgb of >6 grams 2. Coagulopathy - initial PT/PTT elevated - no ecchymosis or petechiae on exam - question whether this was drawn through her heparinized PICC line? 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 Protein calorie malnutrition - secondary to malignancy and inadequate nutrition - patient has severe muscle wasting and evidence of anasarca on exam 5. R chest tube - draining collection from esophageal perforation Dispo: requested assistance from [facility] regarding dispo planning. Patient would like to return home with Hospice services. Brief conversation with family they are unable to provide 24 hour care for her. She seems to be appropriate for the Hospice residence if patient is agreeable and availability exists.
[2018-01-06 10:52] LABS: Monocytes % 3 % (0-7)
--- NOTE | 2018-01-06 10:58 | PN ---
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 Admitted for fatigue, found to be in hypovolemic shock 70s, acute blood loss anemia hg 2.9, inr 2.4; transfused 4 prbc, 2 ffp. BP improved, hg last 9, inr 1.3 now. awake/alert Oncology has seen patient, patient wants to go home, wants comfort, no further procedures/EGD. plan for hospice eval today, already being transferred to medical floor. will have hospitalist service follow patient on floor, no ICU required at this time. guarded/poor prognosis Leonel Meraz MD [employer] Therapist (electronically signed)
[2018-01-06 10:59] LABS: ABS Neutrophils 23.3 10^3/ul (1.5-7.7)
[2018-01-06 11:00] LABS: ABS Basophils 0 10^3/ul (0-0.2)
[2018-01-06] MEDS ORDERED: NS 0.9% 1000 ML* 1,000 ML IV SCH (11:00)
[2018-01-07] MEDS: Morphine VIAL* 4 MG/ML VIAL (1 ml vial) IV PRN ×3 (03:22→10:24)
[2018-01-07] MEDS: Pantoprazole* 80 mg IN NS 80 MG/250 ML BAG IVPB SCH (07:34)
[2018-01-07 10:11] VITALS: BP 105/69
--- NOTE | 2018-01-07 10:21 | DS ---
- Discharge Summary Admission Date: 01/06/18 Discharge Date: 01/07/18 Discharge Diagnosis: 1. End stage esophageal sarcoma: no further therapy, transition to hospice 2. GI Bleed: likely r/t tumor, no further intervention Discharge Medications: Home Medications Medication Instructions Recorded Confirmed Type Heparin FLUSH PICC/ML/CVC(*) 1 - 3 ml FLUSH 0600,1800 #10 01/07/18 Rx syringe LORazepam TAB(*) [Ativan 0.5 MG 0.5 mg PO Q4H PRN #12 tab MDD 6 01/07/18 Rx TAB (*)] tabs Morphine ORAL CONCENTRATE* 10 mg SL Q2H PRN #30 ml MDD 120 mg 01/07/18 Rx Morphine VIAL* 4 mg IV Q2H PRN #12 dose MDD 48 mg 01/07/18 Rx Ondansetron ODT TAB* [Zofran 4 MG 4 mg PO Q4HR PRN #12 tab.odt 01/07/18 Rx Odt TAB*] Hospital Course: Please see admission note for full H&P, however, briefly, Mr. Mascorro is well known to our service due to her unfortunate diagnosis of advanced esophageal sarcoma diagnosed in of this year. She was admitted to the hospital with severe GI bleed on 12/17 and ultimately transferred to [facility] on 12/20 due to esophageal perforation. She received a right chest tube, esophageal stent, and replacement of her PEG tube. During her treatment there she was found to have widely metastatic disease and ultimately discharged home with recommendations for hospice on 12/24. She subsequently has declined follow-up in our office and refused hospice referral despite multiple attempts. She presented to the ER late in the evening of 01/05 with AMS. Per report that evening she had a large volume of melena following several days of constipation and was ultimately admitted for severe GI bleed. She received 4 units of PRBCs and 3 units of FFP with 5 mg Vit. K with recovery of her hmg. She has elected to avoid further aggressive interventions and agreed to discharge with hospice. Last night she developed recurrent blood in her PEG tube with intermittent confusion, however this AM she is alert and involved in her care. She has pain in her abd. though feels morphine has helped. She has agreed to d/c to hospice residence and will be managed with comfort care measures only. She and her family are aware her prognosis is very limited (likely days). I have recommended against use the PEG tube for now d/t cont.'d bleeding, however with focus on comfort she may attempt any PO she likes. We will maintain her PEG for potential IV medication use. All questions were answered and plan of care reviewed at length. >40 min spent with >50% face to face counseling
== END 2018-01-07 11:30 | disposition hospice, inpatient (51) | DRG 240 ==
LOC: ED 21:51 → ICU 01-06 00:36 → MED 01-06 10:14
PROVIDERS: ADMIT Internal Medicine; ATTEND Internal Medicine Hematology & Oncology
PROC: 30233K1 Transfusion of Nonautologous Frozen Plasma into Peripheral Vein, Percutaneous Approach (ICD-10-PCS; principal; 2018-01-05)
PROC: 30233N1 Transfusion of Nonautologous Red Blood Cells into Peripheral Vein, Percutaneous Approach (ICD-10-PCS; 2018-01-05)
DX: C15.5 Malignant neoplasm of lower third of esophagus (principal); R57.1 Hypovolemic shock; E43 Unspecified severe protein-calorie malnutrition; D62 Acute posthemorrhagic anemia; C78.7 Secondary malignant neoplasm of liver and intrahepatic bile duct; C79.51 Secondary malignant neoplasm of bone; J90 Pleural effusion, not elsewhere classified; D63.0 Anemia in neoplastic disease; F17.210 Nicotine dependence, cigarettes, uncomplicated; R79.1 Abnormal coagulation profile; I95.9 Hypotension, unspecified; Z66 Do not resuscitate; Z74.01 Bed confinement status; Z85.3 Personal history of malignant neoplasm of breast; Z92.21 Personal history of antineoplastic chemotherapy; Z90.11 Acquired absence of right breast and nipple; Z80.3 Family history of malignant neoplasm of breast; Z93.1 Gastrostomy status; Z79.899 Other long term (current) drug therapy; Z68.21 Body mass index [BMI] 21.0-21.9, adult
CPT/HCPCS: 36415; 71045; 80053; 82270; 85025; 85610; 85730; 86850; 86900; 86901; 86922; 86927; 87641; 93005; 99233; 99284; 99406; J0744; J2270; J3430; P9017; P9040